=== PATIENT | male | born 1995 ===

== ENCOUNTER 2018-09-07 22:28 | Emergency (ER) | payer OTHER ==
[~2018-09-07] VITALS: Ht 167.6 cm; Wt 113.4 kg
[~2018-09-07 22:28] MED LIST: Ciloxan5 ML BOTHEYES; ERYT.5TO LEFTEYE
== END 2018-09-07 23:06 | disposition home or self-care (01) ==
LOC: ER 22:28
DX: H10.12 Acute atopic conjunctivitis, left eye (principal); I10 Essential (primary) hypertension
CPT/HCPCS: 99282

== ENCOUNTER 2019-01-20 21:16 | Emergency (ER) | payer OTHER ==
[~2019-01-20] VITALS: Ht 177.8 cm; Wt 113.4 kg
[2019-01-20] MEDS ORDERED: PRINIVIL5 MG PO (21:26)
[2019-01-20] MEDS ORDERED: Prozac20 MG (21:26)
[2019-01-20] MEDS ORDERED: KETO10 PO (21:34)
== END 2019-01-20 21:42 | disposition home or self-care (01) ==
LOC: ER 21:16
DX: S76.112A Strain of left quadriceps muscle, fascia and tendon, initial encounter (principal); I10 Essential (primary) hypertension; Z79.899 Other long term (current) drug therapy; X58.XXXA Exposure to other specified factors, initial encounter
CPT/HCPCS: 99283

== ENCOUNTER 2019-04-07 18:48 | Emergency (ER) | payer OTHER ==
[~2019-04-07] VITALS: Ht 177.8 cm; Wt 116.1 kg
[~2019-04-07 18:48] MED LIST changes: +KETO10 PO; +PRINIVIL5 MG PO; +Prozac20 MG
[2019-04-07 19:37] LABS: BASOPHILS ABSOLUTE AUTO 0.07 K/mm3 (0.00-0.23); BASOPHILS PERCENT AUTO 0 % (0-2); EOSINOPHILS ABSOLUTE AUTO 0.27 K/mm3 (0.00-0.68); EOSINOPHILS PERCENT AUTO 2 % (0-6); Hematocrit 52.5 % (37.0-53.0); Hemoglobin 16.7 g/dL (13.5-17.5); IMMATURE GRAN ABSOLUTE AUTO 0.08 K/mm3 (0.00-0.10); IMMATURE GRAN PERCENT AUTO 1 % (0-1); LYMPHOCYTES ABSOLUTE AUTO 1.13 K/mm3 (0.84-5.20); LYMPHOCYTES PERCENT AUTO 7 % (21-46); MONOCYTES ABSOLUTE AUTO 0.95 K/mm3 (0.16-1.47); MONOCYTES PERCENT AUTO 5 % (4-13); Mean Corpuscular HGB 28.2 pg (26.0-34.0); Mean Corpuscular HGB Conc 31.8 g/dL (31.5-36.5); Mean Corpuscular Volume 89 fL (80-100); Mean Platelet Volume 10.4 fL (9.1-12.4); NEUTROPHILS ABSOLUTE AUTO 14.97 K/mm3 (1.96-9.15); NEUTROPHILS PERCENT AUTO 86 % (41-73); Platelet Count 399 K/mm3 (150-400); RDW Coefficient Variation 14.1 % (11.7-14.2); RDW Standard Deviation 45.5 fL (35.1-46.3); Red Blood Cell Count 5.92 M/mm3 (4.30-5.90); White Blood Cell Count 17.47 K/mm3 (4.00-11.30)
[2019-04-07 20:02] LABS: Alanine Aminotransfer (ALT/SGP 114 U/L (12-78); Albumin, Blood 4.6 g/dL (3.4-5.0); Alk Phos 94 U/L (50-136); Anion Gap 6 mmol/L (6-16); Aspartate Aminotrans (AST/SGOT 32 U/L (12-37); Bilirubin, Total 0.7 mg/dL (0.1-1.0); Blood Urea Nitrogen 13 mg/dL (8-24); Bun/Creatinine Ratio 16.6 (12.0-20.0); CO2, Blood 23 mmol/L (21-32); Calcium, Blood 9.5 mg/dL (8.5-10.1); Chloride, Blood 106 mmol/L (98-108); Creatinine, Blood 0.79 mg/dL (0.60-1.20); Globulin, Blood 4.5 g/dL (2.2-4.0); Glomerular Filtration Rate >60 (60-); Glucose, Blood 133 mg/dL (70-99); Potassium, Blood 3.8 mmol/L (3.5-5.5); Sodium, Blood 135 mmol/L (136-145); Total Protein, Blood 9.1 g/dL (6.4-8.2)
[2019-04-07 22:40] LABS: Source, Urine Clean Catch
[2019-04-07 22:47] LABS: Bilirubin, Urine Neg (Neg); Blood, Urine 2+ (Neg); Glucose Qualitative, Urine Neg (Neg); Ketones, Urine Neg (Neg); Leukocyte Esterase, Urine Neg (Neg); Nitrite, Urine Neg (Neg); Protein, Urine Neg (Neg); Urobilinogen, Urine NORM (Normal)
[2019-04-07 22:48] LABS: Appearance, Urine Clear (Clear); Color, Urine Yellow (P-Yellow)
[2019-04-07 22:53] LABS: Amorphous Light (0-Heavy); Bacteria Few /hpf; Mucus Light (0-Heavy); Red Blood Cells, Urine 0-2 /hpf (0-2); Squamous Epithelial Cells Rare /hpf (Few); White Blood Cells, Urine Rare /hpf (0-5)
[2019-04-07 22:55] LABS: Adenovirus F 40/41 Not Detected (NOT DETECT); Astrovirus Not Detected (NOT DETECT); Campylobacter Sp Not Detected (NOT DETECT); Cryptosporidium Not Detected (NOT DETECT); Cyclospora Cayetanensis Not Detected (NOT DETECT); E. Coli O157 Not Detected (NOT DETECT); Entamoeba Histolytica Not Detected (NOT DETECT); Enteroaggregative E. coli-EAEC Not Detected (NOT DETECT); Enteropathogenic E. coli-EPEC Not Detected (NOT DETECT); Enterotoxigenic E. coli-ETEC Not Detected (NOT DETECT); Giardia Lamblia Not Detected (NOT DETECT); Norovirus GI/GII Detected (NOT DETECT); Plesiomonas Shigelloides Not Detected (NOT DETECT); Rotavirus A Not Detected (NOT DETECT); Salmonella Sp Not Detected (NOT DETECT); Sapovirus Not Detected (NOT DETECT); Shiga Toxin-prod E. coli-STEC Not Detected (NOT DETECT); Shigella/Enteroin E. coli-EIEC Not Detected (NOT DETECT); Vibrio Cholerae Not Detected (NOT DETECT); Vibrio Sp Not Detected (NOT DETECT); Yersinia Enterocolitica Not Detected (NOT DETECT)
[2019-04-07] MEDS ORDERED: ONDA4ODT MM (23:22)
== END 2019-04-07 23:34 | disposition home or self-care (01) ==
LOC: ER 18:48
PROVIDERS: Physician Assistant
DX: A08.39 Other viral enteritis (principal); Z79.899 Other long term (current) drug therapy
CPT/HCPCS: 0097U; 36415; 80053; 81001; 83690; 85025; 96361; 96374; 99284-25; A9270-GY; J2405; J7030